=== PATIENT | male | born 1990 ===

== ENCOUNTER 2016-05-21 18:27 | Inpatient (IN) | payer MEDICAID, OTHER ==
--- NOTE | 2016-05-21 19:39 | C.PDOC ---
History Of Present Illness 26 year old male brought to ED by EMS because of suicide ideation. Patient was returned to senior living after telling [employer] gravel truck driver he was going to "jump off bride ". HPI limited because patient refuses to speak Time Seen by Provider: 05/21/16 19:38 Chief Complaint (Nursing): Psychiatric Evaluation History Per: Patient History/Exam Limitations: other (Patient refuses to speak) Onset/Duration Of Symptoms: Days Current Symptoms Are (Timing): Still Present Suicide/Self Injury Attempted (Context): None Modifying Factor(s): None Severity: Moderate Pain Scale Rating Of: 4 Associated Symptoms: Anger, Suicidal Thoughts, Suicidal Plan Recent travel outside of the [place]: No Additional History Per: Patient Past Medical History Reviewed: Historical Data, Nursing Documentation, Vital Signs Vital Signs: Last Vital Signs Temp 98.4 F 05/21/16 19:43 Pulse 84 05/21/16 19:43 Resp 18 05/21/16 19:43 BP 116/68 05/21/16 19:43 Pulse Ox 98 05/21/16 20:34 - Medical History PMH: Hypercholesterolemia, Schizophrenia Family History: States: No Known Family Hx - Social History Hx Tobacco Use: Yes Hx Alcohol Use: No Hx Substance Use: No - Immunization History Hx Tetanus Toxoid Vaccination: No Hx Influenza Vaccination: No Hx Pneumococcal Vaccination: No Review Of Systems Review Of Systems: ROS cannot be obtained secondary to pt's inabilty to answer questions. Physical Exam - Physical Exam Appears: Non-toxic Skin: Warm, Dry Eye(s): bilateral: Normal Inspection Oral Mucosa: Moist Neck: Normal ROM, Supple Cardiovascular: Rhythm Regular Respiratory: No Rales, No Rhonchi, No Wheezing Extremity: Normal ROM, No Tenderness Neurological/Psych: Other (Patient refuses to answer) ED Course And Treatment - Laboratory Results Result Diagrams: 05/21/16 19:53 05/21/16 19:53 O2 Sat by Pulse Oximetry: 98 Disposition Discussed With : Loren Ivan Comment: accepted the pt on her service and tookover the care at 10:31 PM Doctor Will See Patient In The: Hospital Counseled Patient/Family Regarding: Studies Performed, Diagnosis - Disposition Disposition: HOSPITALIZED Disposition Time: 19:39 Condition: FAIR - POA Present On Arrival: None - Clinical Impression Clinical Impression: Schizophrenia - PA / SUPERVISOR NET MAKING / Resident Statement MD/DO has reviewed & agrees with the documentation as recorded. - Scribe Statement The provider has reviewed the documentation as recorded by the Scribe Vane Roldan All medical record entries made by the Lyndsayibpaulina were at my direction and personally dictated by me. I have reviewed the chart and agree that the record accurately reflects my personal performance of the history, physical exam, medical decision making, and the department course for this patient. I have also personally directed, reviewed, and agree with the discharge instructions and disposition. Decision To Admit - Pt Status Changed To: Hospital Disposition Of: Inpatient - Admit Certification Admit to Inpatient:: After my assessment, the patient will require hospitalization for at least two midnights. This is because of the severity of symptoms shown, intensity of services needed, and/or the medical risk in this patient being treated as an outpatient. - InPatient: Physician Admission Certification: I certify that this patient requires 2 or more midnights of care for the following reason:: After my assessment, the patient will require hospitalization for at least two midnights. This is because of the severity of symptoms shown, intensity of services needed, and/or the medical risk in this patient being treated as an outpatient. - . Bed Request Type: Psychiatry Admitting Physician: Loren Ivan Patient Diagnosis: Schizophrenia
[2016-05-21 20:05] LABS: BASO # 0.1 K/uL (0.0-0.2); BASO % 0.8 % (0.0-2.0); EOS # 0.4 K/uL (0.0-0.7); EOS % 3.7 % (0.0-4.0); HEMATOCRIT 42.2 % (35.0-51.0); LYMPH # 2.2 K/uL (1.0-4.3); LYMPH % 19.5 % (20.0-40.0); MEAN CELL VOLUME 81.8 fL (80.0-94.0); MEAN CORPUSCULAR HGB CONC 34.2 g/dL (33.0-37.0); MEAN PLATELET VOLUME 10.8 fL (7.2-11.7); MONO # 0.6 K/uL (0.0-0.8); MONO % 5.6 % (0.0-10.0); RED CELL DISTRIBUTION WIDTH 12.7 % (11.5-14.5); WHITE BLOOD COUNT 11.1 K/uL (4.8-10.8)
[2016-05-21 20:13] LABS: CHLORIDE 101 mmol/L (98-107)
[2016-05-21 20:14] LABS: SODIUM 140 mmol/L (132-148)
[2016-05-21 20:16] LABS: ALB/GLOB RATIO 1.6 (1.0-2.1); ALKALINE PHOSPHATASE 70 U/L (38-126); ALT/SGPT 22 U/L (21-72); AST/SGOT 19 U/L (17-59); BILIRUBIN,TOTAL 0.4 mg/dL (0.2-1.3); BLOOD UREA NITROGEN 11 mg/dL (9-20); CARBON DIOXIDE 23 mmol/L (22-30); GFR AFRICAN-AMERICAN > 60; GLUCOSE,RANDOM 128 mg/dL (75-110); TOTAL PROTEIN 7.6 g/dL (6.3-8.3)
[2016-05-21 20:17] LABS: URINE BILIRUBIN NEGATIVE (NEGATIVE); URINE BLOOD NEGATIVE (NEGATIVE); URINE COLOR Straw (YELLOW); URINE GLUCOSE (UA) NORMAL (Normal); URINE KETONE NEGATIVE (NEGATIVE); URINE LEUKOCYTE ESTERASE NEG Leu/uL (Negative); URINE PROTEIN NEGATIVE (NEGATIVE); URINE UROBILINOGEN NORMAL mg/dL (0.2-1.0); WBC URINE < 1 /hpf (0-5)
[2016-05-21 20:17] LABS: ALCOHOL SERUM < 10 mg/dl (0-10); CALCIUM 9.4 mg/dl (8.6-10.4)
[2016-05-22] MEDS ORDERED: buPROPion 150 mg/24 Hours XL Tab PO SCH (10:00)
--- NOTE | 2016-05-22 12:42 | PCM.PSYCH ---
Initial Psychiatric Evaluation - Initial Psychiatric Evaluation Type of Admission: Voluntary Legal Status: Capacity Chief Complaint (in patient's own words): "I want Ativan, Xanax and Prozac" History of Present Illness and Precipitating Events: The patient is seen, chart reviewed including [facility] notes and case discussed. This is a 26-year-old male, single, no child, domiciled in a nursing home, on disability. He was brought in by EMS after his treatment program called 911. The patient left his nursing home yesterday with [employer] and asked the hire car driver to take him to the bridge so he can jump and kill himself. 911 was called and he was escorted to ER but he was uncooperative for a long time. He said that he didn't want to continue his medications and that he was tired of living and being a psychiatric patient but he denied real intent to kill himself. This morning, first he refused cooperation but then he woke up and spoke to the marketing copywriter. He is a very poor historian, has minimal insight into his condition and was thought disordered and very irate. He said that he heard about Ativan, Xanax and Prozac from "a girl" and wants to use them, and doesn't want to take lithium, Wellbutrin and the Invega shot anymore. He even suspects that his last shot, which was this week, was probably not Invega as it made him "sick." The patient states these are things like, "I want to have sex with someone here " and that he doesn't belong to any program or nursing home and finally he asked the marketing copywriter to refer him to our program. He reluctantly agreed to continue lithium and Risperdal, which is added, and Wellbutrin is switched to Prozac to improve his compliance and for the patient reports depressive symptoms. He contracted for safety and will follow safety plan, but again, he is disorganized. Ativan is started because he was somewhat irritable and manicky. [place] will continue and he took his first dose. He denies drug use and recent stressors. He doesn't elaborate on his social life or family. He denies hearing voices, seeing things or having clear-cut delusions but he seems paranoid. Past psych history: Long history of psychosis since age 11 with numerous admissions. He goes to [facility] and [facility], he denies suicide attempts Medical history: Denies Family psych history: Mother had anxiety Current Medications: Active Medications Generic Name Dose Route Start Last Admin Trade Name Freq PRN Reason Stop Dose Admin Benztropine Mesylate 1 mg 05/22/16 18:00 Cogentin PO QPM BUDDY Fluoxetine HCl 10 mg 05/23/16 10:00 Prozac PO DAILY BUDDY Hydroxyzine HCl 50 mg 05/21/16 23:58 05/22/16 00:18 Atarax PO 50 mg Q6 PRN Administration Anxiety [place] Carbonate 450 mg 05/22/16 18:00 [place] Carbonate PO BID BUDDY Lorazepam 0.5 mg 05/22/16 14:00 Ativan PO TID BUDDY Risperidone 2 mg 05/22/16 18:00 Risperdal Tab PO QPM BUDDY Trazodone HCl 50 mg 05/21/16 23:58 05/22/16 00:18 Desyrel PO 50 mg HS PRN Administration Sleep Past Psychiatric History - Past Psychiatric History Previous Treatment History: Inpatient Pertinent Medical Hx (Current Medical&Sleep Prob, Allergies): Allergies Allergy/AdvReac Type Severity Reaction Status Date / Time seafood Allergy Uncoded 05/21/16 18:53 Acetaminophen [Tylenol] 325 mg PO Q6 06/14/14 Amoxicillin 06/14/14 Bupropion 06/14/14 Gemfibrozil 06/14/14 [place] 06/14/14 Vitamin D 06/14/14 Review of Systems - Neurological Neurological: UNREMARKABLE - Psychiatric Psychiatric: Abnormal Sleep Pattern, Anhedonia, Anxiety, Behavioral Changes, Depression, Difficulty Concentrating, Irritability, Mood Swings, Paranoia. absent: Hallucinations, Homicidal Ideation, Suicidal Ideation Mental Status Examination - Personal Presentation Personal Presentation: Looks older than stated age - Affect Affect: Blunted - Motor Activity Motor Activity: Psychomotor Agitation - Reliability in Providing Information Reliability in Providing Information: Poor, due to alteration in thoughts, Poor , due to altered mood - Speech Speech: Disorganized - Mood Mood: Depressed, Anxious, Other (very irate) - Formal Thought Process Formal Thought Process: Paranoia, Loosening of associations, Perservation - Cognitive Functions Orientation: Person, Place, Time Sensorium: Alert Attention/Concentration: Easily distracted Abstract Thinking: [place] Estimate of Intelligence: Below average Judgement: Imparied, as evidence by: Poor judgement Memory: Recent intact, as evidence by: Ability to recall events of the day, Remote intact, as evidenced by: Abilit to recall sig. life events - Risk Risk: Diminished functioning - Strength & Assets Inventory Strength & Assets Inventory: Life experience - Limitations Limitations: Living alone DSM 5 DX - DSM 5 DSM 5 Diagnosis: Schizoaffective d/o - depressed (r/o mixed) - Recommended/Plan of Treatment Treatment Recommendations and Plan of Treatment: Continue lithium 900 mg per day [place] level in a.m. Add Risperdal 2 mg for now Continue Invega Sustenna after discharge Add Ativan 0.5 3 times a day Add Prozac 10 mg Discontinue Wellbutrin Support and psychoeducation Attend groups and activities Close observation CBT when he improves Contact SERV 32 minutes Projected ELOS: 7 days Prognosis: fair Discharge Plan and Discharge Criteria: No psychosis or SI or agitation Refer back to [facility] / JC
[2016-05-22] MEDS: Lithium Carbonate ER Tab 450 MG PO SCH (17:33)
[2016-05-23] MEDS: Lithium Carbonate ER Tab 450 MG PO SCH ×2 (10:13→17:06)
--- NOTE | 2016-05-23 13:20 | PCM.PYCHPN ---
Psychiatric Progress Note - Psychiatric Progress Note Patient seen today, length of contact: 16 min Patient Chief Complaint: "I want to leave soon" Problems Identified/Issues Discussed: The pt is seen, chart reviewed, case discussed with staff. The pt is compliant with medications reluctantly, and reports no side-effects. Symptoms are not yet improving and needs more time to stabilize. Insight is very low. Pacing halls, internally preoccupied at times, intense but not agitated After care discussed, support and psychoeducation given. Medication Change: Yes Medical Record Reviewed: Yes Mental Status Examination - Cognitive Function Orientation: Person, Place, Time Memory: Impaired Attention: WNL Concentration: Poor Association: WNL Fund of Knowledge: Poor - Mood Mood: Depressed, Anxious, Other (very irate) - Affect Affect: Blunted - Speech Speech: Appropriate - Formal Thought Process Formal Thought Process: Paranoia, Loosening of associations (less), Perservation - Suicidal Ideation Suicidal Ideation: No - Homicidal Ideation Homicidal Ideation: No Goal/Treatment Plan - Goal/Treatment Plan Need for Continued Stay: Discharge may exacerbated symptoms, Severe functional impairment Progress Toward Problem(s) and Goals/Treatment Plan: Continue lithium 900 mg per day [place] level in am Add Risperdal 2 mg for now Continue Invega Sustenna after discharge Add Ativan 0.5 3 times a day Add Prozac 10 mg Discontinue Wellbutrin Support and psychoeducation Attend groups and activities Close observation CBT when he improves Contact SERV Estimated Date of D/C: 05/29/16
[2016-05-24] MEDS: Lithium Carbonate ER Tab 450 MG PO SCH ×2 (09:50→17:11)
--- NOTE | 2016-05-24 17:38 | PCM.PYCHPN ---
Psychiatric Progress Note - Psychiatric Progress Note Patient seen today, length of contact: 17 min Patient Chief Complaint: "I am much better. I don't need meds" Problems Identified/Issues Discussed: The pt is seen, chart reviewed, case discussed with staff. The pt is compliant with medications reluctantly, and reports no side-effects. Symptoms are slowly improving BUT needs more time to stabilize. Insight is still very low. Pacing halls, laughs to self rarely, has unrealistic ideas (moving to another state) After care discussed, support and psychoeducation given. SERV will be invited for a meeting Medication Change: Yes (increase risperdal) Medical Record Reviewed: Yes Mental Status Examination - Cognitive Function Orientation: Person, Place, Time Memory: Impaired Attention: WNL Concentration: Poor Association: WNL Fund of Knowledge: Poor - Mood Mood: Depressed, Anxious, Other (very irate) - Affect Affect: Constricted - Speech Speech: Appropriate - Formal Thought Process Formal Thought Process: Paranoia, Loosening of associations (less), Perservation - Suicidal Ideation Suicidal Ideation: No - Homicidal Ideation Homicidal Ideation: No Goal/Treatment Plan - Goal/Treatment Plan Need for Continued Stay: Discharge may exacerbated symptoms, Severe functional impairment Progress Toward Problem(s) and Goals/Treatment Plan: Continue lithium 900 mg per day [place] level in am Increase Risperdal 3 mg for Continue Invega Sustenna after discharge Added Ativan 0.5 3 times a day Added Prozac 10 mg Discontinued Wellbutrin Support and psychoeducation Attend groups and activities Close observation CBT when he improves Contact SERV Estimated Date of D/C: 05/29/16
[2016-05-25 08:18] LABS: CHLORIDE 103 mmol/L (98-107); POTASSIUM 4.3 mmol/L (3.6-5.2); SODIUM 140 mmol/L (132-148)
[2016-05-25 08:20] LABS: CHOLESTEROL 157 mg/dL (0-199); GFR AFRICAN-AMERICAN > 60
[2016-05-25 08:21] LABS: BLOOD UREA NITROGEN 10 mg/dL (9-20); CALCIUM 9.3 mg/dl (8.6-10.4); CARBON DIOXIDE 24 mmol/L (22-30); GLUCOSE,RANDOM 91 mg/dL (75-110)
[2016-05-25 08:54] LABS: THYROID STIMULATING HORMONE 1.33 mIU/L (0.46-4.68)
[2016-05-25] MEDS: Lithium Carbonate ER Tab 450 MG PO SCH ×2 (10:02→18:16)
--- NOTE | 2016-05-25 12:46 | PCM.PYCHPN ---
Psychiatric Progress Note - Psychiatric Progress Note Patient seen today, length of contact: 18 min Patient Chief Complaint: "I am OK" Problems Identified/Issues Discussed: The pt is seen, chart reviewed, case discussed with staff. The pt is compliant with medications but refusing some prn's sometimes. Symptoms are slowly improving but still thougt disordered, paranoid, odd, low insight. Agreed for a meeting with SERV staff. SW to call and arrange for wed. After care discussed, support and psychoeducation given. Li came low but likely due to non-compliance prior to admission, will repeat in 3 days Triglyc. elevated. Crestor started Medication Change: Yes (add crestor) Medical Record Reviewed: Yes Mental Status Examination - Cognitive Function Orientation: Person, Place, Time Memory: Impaired Attention: WNL Concentration: Poor Association: WNL Fund of Knowledge: Poor - Mood Mood: Anxious, Other (very irate) - Affect Affect: Constricted - Speech Speech: Appropriate - Formal Thought Process Formal Thought Process: Paranoia, Loosening of associations (less), Perservation - Suicidal Ideation Suicidal Ideation: No - Homicidal Ideation Homicidal Ideation: No Goal/Treatment Plan - Goal/Treatment Plan Need for Continued Stay: Discharge may exacerbated symptoms, Severe functional impairment Progress Toward Problem(s) and Goals/Treatment Plan: Continue lithium 900 mg per day [place] level irepeat in 3 days Increased Risperdal 3 mg for Continue Invega Sustenna after discharge Added Ativan 0.5 3 times a day Added Prozac 10 mg Discontinued Wellbutrin Support and psychoeducation Attend groups and activities Close observation CBT when he improves Contact SERV Estimated Date of D/C: 05/29/16
[2016-05-26] MEDS: Lithium Carbonate ER Tab 450 MG PO SCH ×2 (10:17→17:16)
--- NOTE | 2016-05-26 14:06 | PCM.PYCHPN ---
Psychiatric Progress Note - Psychiatric Progress Note Patient seen today, length of contact: 18 min Patient Chief Complaint: "I'm OK" Problems Identified/Issues Discussed: The pt is seen, chart reviewed, case discussed with staff. The pt is compliant with medications but refusing some prn's sometimes. Pt. states that he has "no problems" and that nothing is bothering him. Pt. reports being in a good mood, and achieving a layla's sleep. Pt. denies paranoia, hallucinations, and suicidal ideation. Symptoms continue to improve, but pt. remains disordered, paranoid, and odd, w/ low insight. Smiles to self. Agreed for a meeting with SERV staff. Medication Change: No Medical Record Reviewed: Yes Mental Status Examination - Cognitive Function Orientation: Person, Place, Time Memory: Impaired Attention: WNL Concentration: Poor Association: WNL Fund of Knowledge: Poor - Mood Mood: Anxious - Affect Affect: Constricted - Speech Speech: Appropriate - Formal Thought Process Formal Thought Process: Paranoia, Loosening of associations (less), Perservation - Suicidal Ideation Suicidal Ideation: No - Homicidal Ideation Homicidal Ideation: No Goal/Treatment Plan - Goal/Treatment Plan Need for Continued Stay: Discharge may exacerbated symptoms, Severe functional impairment Progress Toward Problem(s) and Goals/Treatment Plan: Continue lithium 900 mg per day [place] level irepeat in 3 days Increased Risperdal 3 mg for Continue Invega Sustenna after discharge Added Ativan 0.5 3 times a day Added Prozac 10 mg Discontinued Wellbutrin Support and psychoeducation Attend groups and activities Close observation CBT when he improves Contact SERV Estimated Date of D/C: 05/29/16
[2016-05-27] MEDS: Lithium Carbonate ER Tab 450 MG PO SCH ×2 (10:09→17:06)
--- NOTE | 2016-05-27 14:17 | PCM.PYCHPN ---
Psychiatric Progress Note - Psychiatric Progress Note Patient seen today, length of contact: 32 min Patient Chief Complaint: "I don't need a assisted, I don't need meds" Problems Identified/Issues Discussed: The pt is seen, chart reviewed, case discussed with staff. He is seen with the team and his CM from [facility]. The pt is compliant with medications but he may be cheeking as he is improving very slowly. Pt. reports sleeping well, and he reports that he is socializing well with the other patients. When asked if he has any problems or complaints, Pt. responds, "I don't know." Pt. denies paranoia, hallucinations, and suicidal ideation. Pt. contests that he is on too many medications and doesn't need psychiatric treatment - Pt. suggests that he could just see a supervisor fish hatchery. Pt. exhibits a marked lack of insight into condition. Pt. manifests a disorganization in thought in this lack of insight, as well as in loose associations. Weigher And Mixer spoke to him 3x today. In the last one, which was 2 hrs agfter the CM meeting, he was more open. He admitted that he was upset to have schizophrenia and having to take meds. He doesn't believe he needs meds "that much" or the assisted. He is advised to stay there and plan and make changes slowly. He is fixated on a young woman (upstairs assisted member) and going to school. Ways to deal with these issues discussed. He is of course unrealistic but he listened. He is not threatening the neighbor woman but likely in love. We were told he had texted her that he would jump from a bridge prior to admission. He is now adamantly refusing Invega shots but agreed to go back to [facility] and try [facility] later and he reported that the reason he wants [facility] was bc he heard "they have good doctors who take you off meds." He finally agreed to switch from Risp to Abilify and get a shot next week, just bc it causes less weight gain. He is overweight. He will take Li but commercial lines underwriter is pretty sure he will stop. Prozac is stopped now and ativan will be tapered off next few days. In meeting w/ SERV staff: SERV staff stated that pt. has been refusing medications, shots, and all manner of treatment for months. He retracted his EDUARD for [facility] so they cannot talk with them and he doesn;t take care of his chores at the house which he shares with 2 other men. Mobile crisis team had been called few times. He was calm and listened and had some grimaces at times. He did not agree with the worker in many topics but he was ok with promising to cooperate, ie go to [facility] for treatment. Medication Change: Yes (Switch from risperdal to abilify started. Dc prozac) Medical Record Reviewed: Yes Mental Status Examination - Cognitive Function Orientation: Person, Place, Situation, Time Memory: Impaired Attention: WNL Concentration: Poor Association: WNL Fund of Knowledge: Poor - Mood Mood: Depressed, Anxious - Affect Affect: Constricted - Speech Speech: Appropriate - Formal Thought Process Formal Thought Process: Delusions, Paranoia, Loosening of associations (less), Perservation - Suicidal Ideation Suicidal Ideation: No - Homicidal Ideation Homicidal Ideation: No Goal/Treatment Plan - Goal/Treatment Plan Need for Continued Stay: Discharge may exacerbated symptoms, Severe functional impairment Progress Toward Problem(s) and Goals/Treatment Plan: Continue lithium 900 mg per day [place] level repeat in AM Risperdal 3 mg for now but will d/c Start Abilify 5-10-15 until 20 mg and then the Abilify Maintena shot next week Ativan 0.5 2 times a day now Prozac 10 mg d/c'ed Support and psychoeducation Attend groups and activities Close observation CBT when he improves Estimated Date of D/C: 06/02/16
[2016-05-28] MEDS: Lithium Carbonate ER Tab 450 MG PO SCH ×2 (10:01→17:08)
--- NOTE | 2016-05-28 15:50 | PCM.PYCHPN ---
Psychiatric Progress Note - Psychiatric Progress Note Patient seen today, length of contact: 32 min Patient Chief Complaint: "I feel good; I'm not ill." Problems Identified/Issues Discussed: The pt is seen, chart reviewed, case discussed with staff. The pt is compliant with medications but he may be cheeking as he is improving very slowly. Pt. reports sleeping well, and feeling "good." Pt. denies paranoia, hallucinations, and suicidal ideation. Pt. is more amenable to treatment plan today. Pt. agreed to course of treatment in which he is transitioned from abilify PO to abilify injections, all while maintaining compliance to lithium prescription. Pt. encouraged to adhere to treatment in order to achieve expressed goal of going to school. Pt. counseled. Psychoeducation given. Medication Change: Yes (Switch from risperdal to abilify started. Dc prozac) Medical Record Reviewed: Yes Mental Status Examination - Cognitive Function Orientation: Person, Place, Situation, Time Memory: Impaired Attention: WNL Concentration: Poor Association: Loose Fund of Knowledge: Poor - Mood Mood: Depressed, Anxious - Affect Affect: Broad - Speech Speech: Appropriate - Formal Thought Process Formal Thought Process: Delusions, Paranoia, Loosening of associations (less), Perservation - Suicidal Ideation Suicidal Ideation: No - Homicidal Ideation Homicidal Ideation: No Goal/Treatment Plan - Goal/Treatment Plan Need for Continued Stay: Discharge may exacerbated symptoms, Severe functional impairment Progress Toward Problem(s) and Goals/Treatment Plan: Continue lithium 900 mg per day Risperdal 2 mg now. Will d/c Start Abilify 10 mg but will go to 15 - 20 range Ativan 0.5 2 times a day now Prozac 10 mg d/c'ed Support and psychoeducation Attend groups and activities Close observation CBT when he improves Estimated Date of D/C: 06/02/16
[2016-05-29] MEDS: Lithium Carbonate ER Tab 450 MG PO SCH ×2 (11:25→18:07)
--- NOTE | 2016-05-29 14:52 | PCM.PYCHPN ---
Psychiatric Progress Note - Psychiatric Progress Note Patient seen today, length of contact: 17 min Patient Chief Complaint: "I don't want any injection, it hurts" Problems Identified/Issues Discussed: The pt is seen, chart reviewed, case discussed with staff. The pt is compliant with medications and reports no side-effects. Symptoms are improving but needs more time to stabilize. After care discussed, wants to come to [facility] now Also he is refusing Abilify injection. But will take the pill, which is unlikely Support and psychoeducation given. [place] and CBT used briefly. Medication Change: Yes (increase abilify) Medical Record Reviewed: Yes Mental Status Examination - Cognitive Function Orientation: Person, Place, Situation, Time Memory: Impaired Attention: WNL Concentration: Poor Association: Loose Fund of Knowledge: Poor - Mood Mood: Depressed, Anxious - Affect Affect: Broad - Speech Speech: Appropriate - Formal Thought Process Formal Thought Process: Delusions, Paranoia, Loosening of associations (less), Perservation - Suicidal Ideation Suicidal Ideation: No - Homicidal Ideation Homicidal Ideation: No Goal/Treatment Plan - Goal/Treatment Plan Need for Continued Stay: Discharge may exacerbated symptoms, Severe functional impairment Progress Toward Problem(s) and Goals/Treatment Plan: Continue lithium 900 mg per day Risperdal 2 mg for now but will d/c Abilify 15 but will go to 20 mg and then the Abilify Maintena shot next week ( if he agrees. Today, he rejected) Ativan 0.5 2 times a day now Support and psychoeducation Attend groups and activities Close observation CBT when he improves Estimated Date of D/C: 06/02/16
[2016-05-30] MEDS: Lithium Carbonate ER Tab 450 MG PO SCH ×2 (09:52→17:18)
--- NOTE | 2016-05-30 12:55 | PCM.PYCHPN ---
Psychiatric Progress Note - Psychiatric Progress Note Patient seen today, length of contact: 16 min Patient Chief Complaint: I am feeling okay Problems Identified/Issues Discussed: Patient seen and evaluated, chart reviewed and discussed with the nurse. Patient appeared more organized and less internally preoccupied. Patient reports irritability, and agitation. Patient still appears paranoid and delusional. As per staff he is pacing back and forth in the hallways however taking his medication and denied any side effects. Supportive therapy and psychoeducation were given. Medication Change: Yes (increase abilify) Medical Record Reviewed: Yes Mental Status Examination - Cognitive Function Orientation: Person, Place, Situation, Time Memory: Impaired Attention: WNL Concentration: Poor Association: Loose Fund of Knowledge: Poor - Mood Mood: Depressed, Anxious - Affect Affect: Broad - Speech Speech: Appropriate - Formal Thought Process Formal Thought Process: Delusions, Paranoia, Loosening of associations (less), Perservation - Suicidal Ideation Suicidal Ideation: No - Homicidal Ideation Homicidal Ideation: No Goal/Treatment Plan - Goal/Treatment Plan Need for Continued Stay: Discharge may exacerbated symptoms, Severe functional impairment Progress Toward Problem(s) and Goals/Treatment Plan: Schizoaffective d/o - depressed (r/o mixed) Continue lithium 900 mg per day [place] level in a.m. Add Risperdal 2 mg for now Continue Invega Sustenna after discharge Add Ativan 0.5 3 times a day Add Prozac 10 mg Discontinue Wellbutrin Support and psychoeducation Attend groups and activities Close observation CBT when he improves Contact SERV Estimated Date of D/C: 06/02/16 - Smoking Cessation Smoking Cessation Initiated: No
[2016-05-31 07:28] VITALS: O2SAT 99
[2016-05-31] MEDS: Lithium Carbonate ER Tab 450 MG PO SCH ×2 (09:44→17:22)
--- NOTE | 2016-05-31 22:18 | PCM.PYCHPN ---
Psychiatric Progress Note - Psychiatric Progress Note Patient seen today, length of contact: 15 min Patient Chief Complaint: A little better Problems Identified/Issues Discussed: Patient seen and evaluated, chart reviewed and discussed with the nurse. As per staff patient appears more organized, more coherent and less internally preoccupied than yesterday. However he is still pacing back and forth in the hallways and still appears paranoid and delusional. He is taking his medication and denies any side effects. Supportive therapy and psychoeducation were given. Medication Change: Yes (increase abilify) Medical Record Reviewed: Yes Mental Status Examination - Cognitive Function Orientation: Person, Place, Situation, Time Memory: Impaired Attention: WNL Concentration: Poor Association: Loose Fund of Knowledge: Poor - Mood Mood: Depressed, Anxious - Affect Affect: Broad - Speech Speech: Appropriate - Formal Thought Process Formal Thought Process: Delusions, Paranoia, Loosening of associations (less), Perservation - Suicidal Ideation Suicidal Ideation: No - Homicidal Ideation Homicidal Ideation: No Goal/Treatment Plan - Goal/Treatment Plan Need for Continued Stay: Discharge may exacerbated symptoms, Severe functional impairment Progress Toward Problem(s) and Goals/Treatment Plan: Schizoaffective d/o - depressed (r/o mixed) Continue lithium 900 mg per day [place] level in a.m. Add Risperdal 2 mg for now Continue Invega Sustenna after discharge Add Ativan 0.5 3 times a day Add Prozac 10 mg Discontinue Wellbutrin Support and psychoeducation Attend groups and activities Close observation CBT when he improves Contact SERV Estimated Date of D/C: 06/02/16
[2016-06-01] MEDS: Lithium Carbonate ER Tab 450 MG PO SCH ×2 (09:48→17:45)
--- NOTE | 2016-06-01 12:52 | PCM.PYCHPN ---
Psychiatric Progress Note - Psychiatric Progress Note Patient seen today, length of contact: 16 min Patient Chief Complaint: "I am tired" Problems Identified/Issues Discussed: The pt is seen, chart reviewed, case discussed with staff. No new complaints. Still odd, low insight, slowed, sedated and somewhat psychotoc. Still refusing Maintena shot Support given Risperdal is stopped, lorazepam stopped Li and Abilify will be the only two meds he will hopefullytake and will be talked into accepting the Maintena (as he is non-comp) Li level and CMP in AM Medication Change: Yes (DC risperdal) Medical Record Reviewed: Yes Mental Status Examination - Cognitive Function Orientation: Person, Place, Situation, Time Memory: Impaired Attention: WNL Concentration: Poor Association: Loose Fund of Knowledge: Poor - Mood Mood: Depressed, Anxious - Affect Affect: Broad - Speech Speech: Appropriate - Formal Thought Process Formal Thought Process: Delusions (less now), Paranoia, Perservation - Suicidal Ideation Suicidal Ideation: No - Homicidal Ideation Homicidal Ideation: No Goal/Treatment Plan - Goal/Treatment Plan Need for Continued Stay: Discharge may exacerbated symptoms, Severe functional impairment Progress Toward Problem(s) and Goals/Treatment Plan: Continue lithium 900 mg per day Risperdal 2 mg for now but will d/c Abilify 15 but will go to 20 mg and then the Abilify Maintena shot next week ( if he agrees. Today, he rejected) Ativan 0.5 2 times a day now Support and psychoeducation Attend groups and activities Close observation CBT when he improves Estimated Date of D/C: 06/02/16
[2016-06-02 07:50] LABS: CHLORIDE 100 mmol/L (98-107)
[2016-06-02 07:52] LABS: POTASSIUM 4.4 mmol/L (3.6-5.2); SODIUM 137 mmol/L (132-148)
[2016-06-02 07:54] LABS: ALB/GLOB RATIO 1.6 (1.0-2.1); ALKALINE PHOSPHATASE 61 U/L (38-126); AST/SGOT 40 U/L (17-59); BILIRUBIN,TOTAL 0.3 mg/dL (0.2-1.3); BLOOD UREA NITROGEN 10 mg/dL (9-20); CARBON DIOXIDE 26 mmol/L (22-30); CHOLESTEROL 148 mg/dL (0-199); GFR AFRICAN-AMERICAN > 60; GLUCOSE,RANDOM 98 mg/dL (75-110); TOTAL PROTEIN 6.9 g/dL (6.3-8.3)
[2016-06-02 07:55] LABS: ALT/SGPT 65 U/L (21-72); CALCIUM 9.2 mg/dl (8.6-10.4)
[2016-06-02] MEDS: Lithium Carbonate ER Tab 450 MG PO SCH ×2 (10:58→17:21)
--- NOTE | 2016-06-02 23:44 | PCM.PYCHPN ---
Psychiatric Progress Note - Psychiatric Progress Note Patient seen today, length of contact: 17 min Patient Chief Complaint: "I am sick of this illness" Problems Identified/Issues Discussed: The pt is seen, chart reviewed, case discussed with staff. He cried to the junior technical writer as he was upset that he had the illness, which he still thinks was perpetuated b/c of the medications and doctors. He claims he was fine but doctors kept giving meds and he became sicker (??) He also acknowledges he has schizophrenia. He has a belief that he needs to get off meds to attend a school. Reassurance given Li level is still 0.3 - an additional 300 mg added He couldn;t sleep last night. prn seroquel added and abilify is increased to 30 mg Still rejecting Maintena Not suicidal/homicidal but still psychotic Medication Change: Yes (increase abilify) Medical Record Reviewed: Yes Mental Status Examination - Cognitive Function Orientation: Person, Place, Situation, Time Memory: Impaired Attention: WNL Concentration: Poor Association: Loose Fund of Knowledge: Poor - Mood Mood: Depressed, Anxious - Affect Affect: Broad - Speech Speech: Appropriate - Formal Thought Process Formal Thought Process: Delusions, Paranoia, Loosening of associations (less), Perservation - Suicidal Ideation Suicidal Ideation: No - Homicidal Ideation Homicidal Ideation: No Goal/Treatment Plan - Goal/Treatment Plan Need for Continued Stay: Discharge may exacerbated symptoms, Severe functional impairment Progress Toward Problem(s) and Goals/Treatment Plan: Continue lithium 900 mg per day but increase to 1200 Risperdal dc'ed Abilify is increased to 30 mg Ativan prn only seroquel 100 prn Support and psychoeducation Attend groups and activities Close observation CBT when he improves Estimated Date of D/C: 06/05/16 If changed, why: still disorganized
[2016-06-03] MEDS: Lithium Carbonate ER Tab 450 MG PO SCH ×2 (09:36→17:48)
[2016-06-03 10:13] VITALS: RESP 18
--- NOTE | 2016-06-03 14:52 | PCM.PYCHPN ---
Psychiatric Progress Note - Psychiatric Progress Note Patient seen today, length of contact: 20 min Patient Chief Complaint: "I want to go home" Problems Identified/Issues Discussed: The pt is seen, chart reviewed, case discussed with staff. Pt complains that he wants to go home and that his mood is ok. He says he slept last night. He asked for "medical marijuana" to help with his symptoms and patient was counseled on the risks and side effects of marijuana use. Pt wants something to "take the edge off of being in a psych martin." He says he just wants to sleep until his discharge. He received counseling on medication. Aftercare was discussed and the plan is for him to go to [facility]. Patient not suicidal/homicidal but still psychotic. Psychosocial support and education given Medication Change: Yes (Abilify 30 mg) Medical Record Reviewed: Yes Mental Status Examination - Cognitive Function Orientation: Person, Place, Situation, Time Memory: Impaired Attention: WNL Concentration: Poor Association: Loose Fund of Knowledge: Poor - Mood Mood: Depressed, Anxious - Affect Affect: Broad - Speech Speech: Appropriate - Formal Thought Process Formal Thought Process: Delusions, Paranoia, Loosening of associations (less), Perservation - Suicidal Ideation Suicidal Ideation: No - Homicidal Ideation Homicidal Ideation: No Goal/Treatment Plan - Goal/Treatment Plan Need for Continued Stay: Discharge may exacerbated symptoms, Severe functional impairment Progress Toward Problem(s) and Goals/Treatment Plan: Continue lithium 1500mg per day Abilify 30 mg Ativan prn only seroquel 100 prn Support and psychoeducation Attend groups and activities Close observation CBT when he improves Estimated Date of D/C: 06/05/16
[2016-06-04] MEDS: Lithium Carbonate ER Tab 450 MG PO SCH ×2 (10:28→17:08)
[2016-06-04 11:34] VITALS: TEMP 97.9
--- NOTE | 2016-06-04 15:53 | PCM.PYCHPN ---
Psychiatric Progress Note - Psychiatric Progress Note Patient seen today, length of contact: 20 min Patient Chief Complaint: "I feel ok" Problems Identified/Issues Discussed: The pt is seen, chart reviewed, case discussed with staff. Pt reports that he is feeling ok and that his mood is better. He slept last night. Pt reports no medication side effects and is not tremulous. Pt requesting to stay and is concerned about doing everything himself. He says he is bored and trying to take things "one day at a time." He denies feeling angry and restless. Denies S/I. Psychosocial support and education given Medication Change: No Medical Record Reviewed: Yes Mental Status Examination - Cognitive Function Orientation: Person, Place, Situation, Time Memory: Impaired Attention: WNL Concentration: Poor Association: Loose Fund of Knowledge: WNL - Mood Mood: Depressed, Anxious - Affect Affect: Broad - Speech Speech: Appropriate - Formal Thought Process Formal Thought Process: Paranoia, Loosening of associations (less) - Suicidal Ideation Suicidal Ideation: No - Homicidal Ideation Homicidal Ideation: No Goal/Treatment Plan - Goal/Treatment Plan Need for Continued Stay: Discharge may exacerbated symptoms, Severe functional impairment Progress Toward Problem(s) and Goals/Treatment Plan: Continue lithium 1500mg per day continue Abilify 30 mg Ativan prn only seroquel 100 prn Support and psychoeducation Attend groups and activities Close observation CBT when he improves Estimated Date of D/C: 06/05/16
[2016-06-04 16:46] VITALS: BP 115/69; PULSE 78
[2016-06-05] MEDS: Lithium Carbonate ER Tab 450 MG PO SCH (09:37)
[2016-06-05] MEDS ORDERED: Ergocalciferol 50,000 Intl Units Cap PO SCH (09:45)
--- NOTE | 2016-06-05 09:48 | PCM.PYCHDC ---
Mental Status Examination - Mental Status Examination Orientation: Person, Place, Situation, Time Memory: Intact Mood: Anxious Affect: Broad Speech: Appropriate Attention: Poor Concentration: Poor Association: WNL Fund of Knowledge: WNL Formal Thought Process: Paranoia Suicidal Ideation: No Current Homicidal Ideation?: No Discharge Summary - Discharge Note Reason for Hospitalization: Pt brought to ER because he had S/I and asked [employer] driver guide to take him to a bridge so he can jump off and kill himself. Psychiatric History (includes Medical, Family, Personal Hx): Multiple admissions for chronic psychotic illness Consultations:: List each consultation separately and include: 1. Reason for request. 2. Findings. 3. Follow-up Summary of Hospital Course include:: 1. Description of specific treatment plan utilized for patients during their course of treatmen. 2. Summarize the time- course for resolution of acute symptoms and/or regressed behaviors. 3. Describe issues identified and worked on during hospitalization. 4. Describe medication utilized. 5. Describe medical problems identified and treated. 6. Reassessment of suicide risk Summary of Hospital Course: This is a 26-year-old male, single, no child, domiciled in a fci, on disability. On admission: He was brought in by EMS after his treatment program called 911. The patient left his fci yesterday with [employer] and asked the driver guide to take him to the bridge so he can jump and kill himself. 911 was called and he was escorted to ER but he was uncooperative for a long time. He said that he didn't want to continue his medications and that he was tired of living and being a psychiatric patient but he denied real intent to kill himself. This morning, first he refused cooperation but then he woke up and spoke to the typewriter repairer. He is a very poor historian, has minimal insight into his condition and was thought disordered and very irate. He said that he heard about Ativan, Xanax and Prozac from "a girl" and wants to use them, and doesn't want to take lithium, Wellbutrin and the Invega shot anymore. He even suspects that his last shot, which was this week, was probably not Invega as it made him "sick." The patient states these are things like, "I want to have sex with someone here " and that he doesn't belong to any program or fci and finally he asked the typewriter repairer to refer him to our program. He reluctantly agreed to continue lithium and Risperdal, which is added, and Wellbutrin is switched to Prozac to improve his compliance and for the patient reports depressive symptoms. He contracted for safety and will follow safety plan, but again, he is disorganized. Ativan is started because he was somewhat irritable and manicky. Morning Glory will continue and he took his first dose. He denies drug use and recent stressors. He doesn't elaborate on his social life or family. He denies hearing voices, seeing things or having clear-cut delusions but he seems paranoid. Past psych history: Long history of psychosis since age 11 with numerous admissions. He goes to [facility] and [facility], he denies suicide attempts Medical history: Denies Family psych history: Mother had anxiety Today and hospital course: The patient is seen again today, chart reviewed and case discussed. Pt says he is feeling ok and slept well last night. He seemed anxious about leaving. Patient was counseled about his medications. Patient was asking about medications for anxiety and "to make his brain work better." Patient was counseled on medications and side effects. Over the course of his hospitalization patient improved and started to respond to treatment. It took him long time to recover as he was quite ill and resistant to treatment. His Li level came low 3x and recently increased when it was certain that he was NOT cheeking pills. His main problem was very poor insight and denial which came and went a lot. And when he had some insight, he would get depressed and cry b/c he has "mental illness." He was also fixated on going back to school and claimed meds were preventing him. Complex Care Nurse corrected this distortion many times. Support and psychoed given. Aftercare options were discussed and patient was strongly encouraged to continue therapy and continue taking medications. He refused to go to [facility] and was referred to Nam Vizcarra ([facility] is aware and will follow up). If not CRC. We also met with SERV worker and she told us that the pt had been decompensating for a while, withdrew his consent a while back (for [facility]) and stopped meds Pt was switched to Abilify but he refused Maintena injection. Patient tolerated treatment. Patient attended group activities.Patient attended individual and supportive therapy CBT and HI used Psychoeducation and support given - Final Diagnosis (DSM 5) Condition upon Discharge: FAIR DSM 5: Schizo-affective disorder -depressed Disposition: HOME/ ROUTINE Follow-up Treatment Plan: Continue below medications. Complex Care Nurse obtained RHEA mendoza (late entry) Attend aftercare and therapy Continue CBT Use coping and self care strategies Return to ER if experiencing suicidal ideation, homicidal ideation, or agitation Prescriptions/Medication Reconciliation: ARIPiprazole [Abilify] 30 mg PO HS #30 tab Ergocalciferol [Drisdol 50,000 Intl Units Cap] 1 cap PO Q7D #4 cap hydrOXYzine HCl [Atarax] 50 mg PO BID PRN #60 tab PRN Reason: Anxiety Morning Glory Carbonate [Morning Glory Carbonate 300MG] 600 mg PO DAILY #60 cap Multivitamins [Hexavitamin] 1 tab PO DAILY #30 tab Rosuvastatin Calcium [Crestor] 10 mg PO HS #30 tab traZODone [Desyrel] 100 mg PO HS PRN #30 tab PRN Reason: Sleep - Smoking Cessation Smoking Cessation Medication prescribed: No - Antipsychotic Medications Pt discharged on 2 or more routine antipsychotic medications: No
[2016-06-05] MEDS ORDERED: Multiple Vitamins Tab PO SCH (10:00)
== END 2016-06-05 11:25 | disposition home or self-care (01) | DRG 430 ==
LOC: C.ER 18:27 → C.5E 22:30
PROVIDERS: ADMIT Psychiatry & Neurology Psychiatry; ATTEND Psychiatry & Neurology Psychiatry
PROC: GZ3ZZZZ Medication Management (ICD-10-PCS; principal; 2016-05-21)
PROC: GZHZZZZ Group Psychotherapy (ICD-10-PCS; 2016-05-21)
PROC: GZ56ZZZ Individual Psychotherapy, Supportive (ICD-10-PCS; 2016-05-21)
DX: F25.1 Schizoaffective disorder, depressive type (principal); R45.851 Suicidal ideations; F17.210 Nicotine dependence, cigarettes, uncomplicated; Z91.013 Allergy to seafood

== ENCOUNTER 2017-11-29 23:32 | Emergency (ER) | payer OTHER ==
[2017-11-29 23:32] VITALS: BMI 34.0
[2017-11-29 23:43] VITALS: O2SAT 96
--- NOTE | 2017-11-30 00:05 | C.PDOC ---
History Of Present Illness 27 year old male presents to the ER after being found intoxicated in public by EMS. Patient offers no complaints at this time. Time Seen by Provider: 11/30/17 00:04 Chief Complaint (Nursing): Substance Abuse History Per: Patient, EMS History/Exam Limitations: no limitations Onset/Duration Of Symptoms: Hrs Current Symptoms Are (Timing): Still Present Suicide/Self Injury Attempted (Context): None Modifying Factor(s): Alcohol Associated Symptoms: denies: Depression, Suicidal Thoughts Involuntary Hold By: None Recent travel outside of the [place]: No Past Medical History Reviewed: Historical Data, Nursing Documentation, Vital Signs Vital Signs: Last Vital Signs Temp 98.4 F 11/29/17 23:39 Pulse 100 H 11/29/17 23:39 Resp 18 11/29/17 23:39 BP 145/85 11/29/17 23:39 Pulse Ox 96 11/29/17 23:39 - Medical History PMH: Bipolar Disorder, Depression, Hypercholesterolemia, Personality Disorder, Schizophrenia Denies: Diabetes, Hepatitis, HIV, HTN, Chronic Kidney Disease, Seizures, Sexually Transmitted Disease - [facility] Procedures GROUP PSYCHOTHERAPY (06/02/17) INDIVIDUAL PSYCHOTHERAPY, BEHAVIORAL (05/03/17) INDIVIDUAL PSYCHOTHERAPY, COGNITIVE-BEHAVIORAL (06/02/17) INDIVIDUAL PSYCHOTHERAPY, SUPPORTIVE (06/18/16) MEDICATION MANAGEMENT (05/21/16) Family History: States: Unknown Family Hx - Social History Hx Tobacco Use: Yes Hx Alcohol Use: Yes Hx Substance Use: No - Immunization History Hx Tetanus Toxoid Vaccination: No Hx Influenza Vaccination: No Hx Pneumococcal Vaccination: No Review Of Systems Except As Marked, All Systems Reviewed And Found Negative. Constitutional: Positive for: Other (ETOH intoxication). Negative for: Fever, Chills Cardiovascular: Negative for: Chest Pain, Palpitations Respiratory: Negative for: Cough, Shortness of Breath Gastrointestinal: Negative for: Nausea, Vomiting Physical Exam - Physical Exam Appears: Non-toxic, Other (Intoxicated, Cooperative, No sign of injury) Skin: Normal Color, Warm, Dry Head: Atraumatic, Normacephalic Eye(s): bilateral: Normal Inspection Oral Mucosa: Moist Neck: Normal, Supple Chest: Symmetrical, No Tenderness Cardiovascular: Rhythm Regular Respiratory: Normal Breath Sounds, No Rales, No Rhonchi, No Wheezing Gastrointestinal/Abdominal: Soft, No Tenderness Extremity: Normal ROM (x4) Neurological/Psych: Oriented x3, Normal Speech Gait: Unsteady ED Course And Treatment - Laboratory Results Result Diagrams: 11/30/17 01:18 11/30/17 01:42 O2 Sat by Pulse Oximetry: 96 (room air) Pulse Ox Interpretation: Normal Reevaluation Time: 05:31 Reassessment Condition: Improved (PT REFUSING CRISIS EVAL) Disposition Counseled Patient/Family Regarding: Studies Performed, Diagnosis - Disposition Referrals: Jada Olivas MD [Primary Care Provider] - Disposition: HOME/ ROUTINE Disposition Time: 05:32 Condition: GOOD Instructions: Schizoaffective Disorder (DC) Forms: Culture Machine (Urdu) - Clinical Impression Clinical Impression: Schizoaffective disorder, bipolar type, Alcohol intoxication - Scribe Statement The provider has reviewed the documentation as recorded by the Scribpaulina Sexton All medical record entries made by the Scribe were at my direction and personally dictated by me. I have reviewed the chart and agree that the record accurately reflects my personal performance of the history, physical exam, medical decision making, and the department course for this patient. I have also personally directed, reviewed, and agree with the discharge instructions and disposition.
[2017-11-30 01:24] LABS: URINE BILIRUBIN NEGATIVE (NEGATIVE); URINE BLOOD NEGATIVE (NEGATIVE); URINE CLARITY Clear (Clear); URINE COLOR Straw (YELLOW); URINE GLUCOSE (UA) NORMAL (Normal); URINE LEUKOCYTE ESTERASE NEG Leu/uL (Negative); URINE PROTEIN NEGATIVE (NEGATIVE); URINE UROBILINOGEN NORMAL mg/dL (0.2-1.0)
[2017-11-30 01:25] LABS: BASO # 0.1 K/uL (0.0-0.2); BASO % 0.6 % (0.0-2.0); EOS # 0.4 K/uL (0.0-0.7); EOS % 3.4 % (0.0-4.0); HEMOGLOBIN 14.6 g/dL (12.0-18.0); LYMPH # 2.5 K/uL (1.0-4.3); LYMPH % 21.4 % (20.0-40.0); MEAN CELL VOLUME 82.9 fL (80.0-94.0); MEAN CORPUSCULAR HEMOGLOBIN 28.4 pg (27.0-31.0); MEAN CORPUSCULAR HGB CONC 34.2 g/dL (33.0-37.0); MEAN PLATELET VOLUME 10.2 fL (7.2-11.7); MONO # 0.7 K/uL (0.0-0.8); MONO % 6.1 % (0.0-10.0); NEUT # 7.8 K/uL (1.8-7.0); NEUT % 68.5 % (50.0-75.0); RBC 5.14 Mil/uL (4.40-5.90); RED CELL DISTRIBUTION WIDTH 13.5 % (11.5-14.5); WHITE BLOOD COUNT 11.4 K/uL (4.8-10.8)
[2017-11-30 01:52] LABS: ALB/GLOB RATIO 1.6 (1.0-2.1); ALBUMIN 4.9 g/dL (3.5-5.0); ALT/SGPT 26 U/L (21-72); AST/SGOT 23 U/L (17-59); BLOOD UREA NITROGEN 9 mg/dL (9-20); CALCIUM 10.1 mg/dl (8.6-10.4); GFR NON-AFRICAN AMERICAN > 60
[2017-11-30 02:39] LABS: BARBITURATES, UR NEGATIVE (NEGATIVE); BENZODIAZEPINES, UR NEGATIVE (NEGATIVE); OPIATES, UR NEGATIVE (NEGATIVE); PHENCYCLIDINE, UR NEGATIVE (NEGATIVE)
[2017-11-30 03:39] VITALS: BP 131/61; PULSE 74; RESP 24; TEMP 98.3
== END 2017-11-30 05:59 | disposition home or self-care (01) ==
LOC: SUPCPDRO 23:32 → C.ER 23:32
DX: F10.129 Alcohol abuse with intoxication, unspecified (principal); Y90.6 Blood alcohol level of 120-199 mg/100 ml; F25.0 Schizoaffective disorder, bipolar type